=== PATIENT | male | born 1995 | race Two or more races ===

== ENCOUNTER 2022-10-09 16:31 | Emergency (ER) | payer OTHER, SELFPAY ==
[2022-10-09 16:32] VITALS: BP 118/83; PULSE 143; RESP 20; TEMP 38.3; O2SAT 98; BMI 27.8
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
[2022-10-09 16:53] VITALS: BP 139/71; PULSE 137; RESP 21; TEMP 37.2
--- NOTE | 2022-10-09 17:04 | MHC.EDTECH ---
@[phone] CALL PLACED TO [facility] PT [place] LINE @ DR MATTHEWS REQUEST AMANDA ANSWERS THEN ASKS TO SPEAK WITH DR MATTHEWS FOR MORE INFO DR MATTHEWS TAKES OVER CALL RIGHT AWAY
[2022-10-09] MEDS: 0.9 % Sodium Chloride 1,000 ML 999 ML IVCONT (17:27)
[2022-10-09 17:36] LABS: Lactic Acid 1.1 mmol/L (0.5-2.0)
[2022-10-09] MEDS: Morphine Sulfate 4 MG/ML CARTRIDGE IVPUSH (17:36)
[2022-10-09 17:38] LABS: Basophils Percent Auto 0.2 % (0-2); Eosinophils Percent Auto 0.1 % (0-4); Hematocrit 30.2 % (42.0-52.0); Hemoglobin 10.4 g/dl (14.0-18.0); Imm Gran Pct Auto 1.2 % (0.0-0.4); Lymphocytes Absolute Auto 1.9 X10*3/uL (1.2-4.9); Lymphocytes Percent Auto 11.1 % (20-40); Mean Corpuscular HGB Conc 34.4 g/dl (31.0-36.0); Mean Corpuscular Hemoglobin 30.9 pg (27.0-33.0); Mean Corpuscular Volume 89.6 fL (80.0-98.0); Mean Platelet Volume 9.2 fL (9.4-12.4); Monocytes Absolute Auto 1.8 X10*3/uL (0.1-1.2); Monocytes Percent Auto 10.7 % (2-11); Neutrophils Absolute Auto 13.1 x10*3/uL (2.0-8.3); Neutrophils Percent Auto 76.7 % (45-73); Platelet Count 272 X10*3/uL (160-400); Red Blood Count 3.37 X10*6/uL (4.60-5.80); Red Cell Distribution Width 12.4 % (11.0-16.0); SCAN SMEAR FLAG 1
[2022-10-09 17:47] LABS: COVID-19 Test Negative (Negative); IDNOW Serial# 9DB6401D
[2022-10-09 17:57] LABS: MANUAL DIFF FLAG SCAN; SLIDE REVIEW VERIFIED
[2022-10-09 17:58] LABS: Alanine Aminotransferase 29 U/L (0-40); Albumin Level 3.5 g/dL (3.5-5.0); Alkaline Phosphatase 46 U/L (39-117); Anion Gap 13 (12-20); Aspartate Amino Transferase 39 U/L (5-37); Bilirubin Direct 0.2 mg/dL (0.0-0.5); Bilirubin Total 0.7 mg/dL (0.0-1.0); Blood Urea Nitrogen 13 mg/dL (9-16); Calcium 8.3 mg/dL (8.4-10.2); Carbon Dioxide 26 mmol/L (22-29); Chloride 104 mmol/L (96-108); Estimated Glomerular Filt Rate > 60; Glucose Random 109 mg/dL (60-115); Potassium 3.9 mmol/L (3.3-5.1); Sodium 139 mmol/L (135-145); Total Protein 5.7 g/dL (6.5-8.0)
[2022-10-09 18:06] LABS: INTERNATIONAL NORM RATIO 1.4 (0.9-1.1); Prothrombin Time 15.8 SEC (10.0-13.1)
--- NOTE | 2022-10-09 18:40 | MHC.EDTECH ---
@[phone] CALL PLACED TO [facility] PT [place] LINE FOR ACCEPTING MD NAME @ REQUEST OF DR CASSIE MONTERROSO ANSWERS AND GIVES BRENT BECERRA MD ACCEPTING BRENT ROBERT TO ER [place]
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
[2022-10-09 19:13] VITALS: BP 137/68; PULSE 131; RESP 18; TEMP 37.3; O2SAT 100
[2022-10-09] MEDS: cefEPime HCl 2 GM in 0.9 % Sodium Chloride 50 ML IV (19:26)
[2022-10-09 19:27] VITALS: RESP 16
[2022-10-09] MEDS: HYDROmorphone HCl 1 MG/ML SYRINGE IVPUSH (19:27)
--- NOTE | 2022-10-09 19:36 | MHC.EDTECH ---
Call out to Sary @[phone] spoke to María and booked an BLS transport to [facility] ER.
[2022-10-09 19:44] VITALS: BP 117/56; PULSE 133; RESP 16; TEMP 36.9; O2SAT 97
== END 2022-10-09 19:55 | disposition short-term general hospital (02) ==
PROVIDERS: Emergency Provider Emergency Medicine; PCP Internal Medicine
DX: R50.9 Fever, unspecified (principal); S81.832D Puncture wound without foreign body, left lower leg, subsequent encounter; S81.831D Puncture wound without foreign body, right lower leg, subsequent encounter; S61.531D Puncture wound without foreign body of right wrist, subsequent encounter; X93.XXXD Assault by handgun discharge, subsequent encounter; Z20.822 Contact with and (suspected) exposure to COVID-19
CPT/HCPCS: 80048; 80076; 83605; 85025; 85610; 87040; 87635; 96374; 96375; 99285; J0692; J1170; J2270

== ENCOUNTER 2023-06-09 15:58 | Emergency (ER) | payer OTHER, SELFPAY ==
--- NOTE | ~2023-06-09 | CT_ITS ---
EXAMINATION: CT ABDOMEN AND PELVIS WITHOUT CONTRAST CLINICAL INFORMATION: Right flank pain. COMPARISON: None available. TECHNIQUE: Multidetector volumetric imaging was performed from the superior aspect of the liver through the pubic symphysis. Sagittal and coronal reformatted images were obtained on the technologist's workstation. This CT examination was performed using dose optimization techniques as appropriate, variously including the following: *Automated exposure control *Adjustment of mA and/or kV according to patient size (this includes techniques or standardized protocols for targeted exams where dose is matched to indication/reason for exam; i.e. extremities or head) *Use of iterative reconstruction technique DLP: 433 mGy-cm FINDINGS: The lack of intravenous contrast limits evaluation of the solid visceral organs including the liver, spleen, pancreas, and kidneys. LUNG BASES: The visualized lung bases are unremarkable. LIVER, GALLBLADDER, AND BILIARY TREE: The liver is normal in size, shape, and attenuation. Nonspecific coarse calcifications along the periphery of the posterior right hepatic lobe (2:7) and too small to characterize subcapsular hypodensity slightly more inferiorly in the posterior right hepatic lobe (2:14). No biliary ductal dilatation is present. The gallbladder is unremarkable with no evidence of radiopaque gallstones, gallbladder wall thickening, or obvious pericholecystic inflammatory changes. PANCREAS: Unremarkable. SPLEEN: Unremarkable. ADRENAL GLANDS: Unremarkable. KIDNEYS AND URETERS: Moderate right-sided hydronephrosis upstream from a 9 mm calculus in the right ureter at the level of L3 measuring 871 Hounsfield units. Multiple additional nonobstructive bilateral renal calculi in the order of approximately 5 in the right kidney and 2 in the left lower kidney. BLADDER: Unremarkable. GASTROINTESTINAL TRACT: The stomach and the small bowel are nondilated. Normal appendix. Mild colonic diverticulosis. No pericolonic fat stranding or free fluid. No evidence of bowel obstruction. ABDOMINAL WALL: No significant hernia is appreciated. LYMPH NODES: No lymphadenopathy. VASCULAR: Normal caliber abdominal aorta. PELVIC VISCERA: Unremarkable. OSSEOUS STRUCTURES: Nonaggressive appearing sclerotic osseous lesions in the pelvis and femurs in favored represent bone islands. No acute or aggressive appearing osseous abnormalities. Partially imaged right femoral intramedullary stem. CT/CT abdomen pelvis wo IV con IMPRESSION: Obstructive 9 mm right ureteric calculus with upstream moderate hydroureteronephrosis. Multiple additional nonobstructing bilateral renal calculi. Mild colonic diverticulosis without significant associated inflammatory changes to suspect acute diverticulitis. Single focus of coarse hepatic calcifications most likely sequela of trauma or sequela of old infection/inflammatory process. Single, too small to characterize subcapsular hypodensity in the right hepatic lobe is most likely a simple cyst or a fat locule in a patient of this age. Further characterization with MRI as clinically warranted.
[2023-06-09 16:04] VITALS: BP 144/88; PULSE 88; RESP 16; TEMP 36.6; O2SAT 98; BMI 23.7
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
[2023-06-09] MEDS: ondansetron HCL 4 MG/2 ML VIAL IVPUSH (17:27)
[2023-06-09] MEDS: Morphine Sulfate 4 MG/ML CARTRIDGE IVPUSH (17:27)
[2023-06-09] MEDS: dexAMETHasone sod phosphate 10 MG/ML VIAL IVPUSH (17:27)
[2023-06-09] MEDS: Ketorolac Tromethamine 30 MG/ML VIAL IVPUSH (17:27)
[2023-06-09] MEDS: 0.9 % Sodium Chloride 1,000 ML 999 ML IV (17:34)
[2023-06-09 17:37] LABS: Basophils Percent Auto 0.2 % (0-2); Hematocrit 45.9 % (42.0-52.0); Hemoglobin 15.7 g/dl (14.0-18.0); Imm Gran Abs Auto 0.09 X10*3/uL (0.00-0.03); Imm Gran Pct Auto 0.5 % (0.0-0.4); Lymphocytes Absolute Auto 1.1 X10*3/uL (1.2-4.9); Lymphocytes Percent Auto 5.9 % (20-40); MANUAL DIFF FLAG SCAN; Mean Corpuscular HGB Conc 34.2 g/dl (31.0-36.0); Mean Corpuscular Hemoglobin 31.2 pg (27.0-33.0); Mean Corpuscular Volume 91.3 fL (80.0-98.0); Mean Platelet Volume 9.2 fL (9.4-12.4); Monocytes Absolute Auto 0.6 X10*3/uL (0.1-1.2); Monocytes Percent Auto 3.1 % (2-11); Neutrophils Absolute Auto 16.2 x10*3/uL (2.0-8.3); Neutrophils Percent Auto 90.3 % (45-73); Platelet Count 314 X10*3/uL (160-400); Red Blood Count 5.03 X10*6/uL (4.60-5.80); Red Cell Distribution Width 12.9 % (11.0-16.0); SCAN SMEAR FLAG 1
[2023-06-09 18:09] LABS: SLIDE REVIEW VERIFIED
[2023-06-09 18:49] LABS: Alanine Aminotransferase 32 U/L (0-40); Albumin Level 3.9 g/dL (3.5-5.0); Alkaline Phosphatase 83 U/L (39-117); Anion Gap 13 (12-20); Aspartate Amino Transferase 19 U/L (5-37); Bilirubin Direct 0.1 mg/dL (0.0-0.5); Bilirubin Total 0.3 mg/dL (0.0-1.0); Blood Urea Nitrogen 14 mg/dL (9-16); Carbon Dioxide 26 mmol/L (22-29); Chloride 111 mmol/L (96-108); Creatinine Clr Calc Pharmacy 106.4; Estimated Glomerular Filt Rate > 60; Glucose Random 104 mg/dL (60-115); Lipase 19 U/L (8-78); Potassium 4.4 mmol/L (3.3-5.1); Sodium 146 mmol/L (135-145); Total Protein 6.5 g/dL (6.5-8.0)
[2023-06-09] MEDS: HYDROmorphone HCl 2 MG/ML VIAL IVPUSH (20:11)
[2023-06-09] MEDS: Tamsulosin HCL 0.4 MG CAPSULE PO (20:12)
[2023-06-09 20:15] VITALS: BP 102/69; PULSE 90; RESP 18; TEMP 37.1; O2SAT 96
== END 2023-06-10 06:01 | disposition home or self-care (01) ==
PROVIDERS: Physician Assistant Medical; Emergency Provider Internal Medicine; PCP Internal Medicine
DX: N13.2 Hydronephrosis with renal and ureteral calculous obstruction (principal); Z87.442 Personal history of urinary calculi
CPT/HCPCS: 36415; 74176; 80048; 80076; 83690; 85025; 96361; 96374; 96375; 99284; J1100; J1170; J1885; J2270; J2405